=== PATIENT | female | born 1985 | race Caucasian/White ===

== ENCOUNTER 2017-01-14 18:31 | Emergency (ER) | payer OTHER ==
[~2017-01-14] VITALS: Ht 157.5 cm; Wt 52.2 kg
--- NOTE | 2017-01-14 19:18 | [facility]gent Treatment [facility] Report ---
History of Present Issue Date/Time Seen by Provider 01/14/171917 Visit Reason Pt arrived:Walked Presenting Problem:PT C/O COUGH X1 WEEK THAT DEVELOPED INTO CHEST CONGESTION YESTERDAY Location if Accident: Onset of symptoms date/time:/ or onset unknown for:MEDICAL HX UNKNOWN Have you (or family members/close friends) recently traveled outside the [place]? N If Yes, where/when: Have you had exposure to infectious disease within the past month? TB? Other? Specify: c/o cough and chest congestion. Started w/ rhinorrhea and nasal congestion approximately 2 weeks ago but quickly changed to cough and chest congestion pt reports. No fever or malaise until the last 1-2 days. "just more tired mostly". productive cough, white to yellow sputum. Initially denies SOA but then talks about increased coughing and work of breathing w/ exertion. Worse yesterday out in the heat. Essie a "vibration" mid chest yesterday that scared her. Thinks now just congestion and heat combination. Robitussin and mucinex not helping. Non smoker. 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 Source patient Exam Limitations no limitations ALLERGIES Coded Allergies: No Known Allergies (01/14/17) History Medical History General CAD? No Angina: No [place]: No Hypertension? No Hyperlipidemia? No CHF? No DVT? No PE? No COPD? No Asthma? No Anemia? No GERD? No Gastric ulcers? No GI Bleed? No Hernia? No Thyroid Problems? No Hypothyroidism? No CVA? No Seizures? No Diabetes? No Renal Insuffiency? No UTI? No Stones? No BPH? No GB Disease: No Nephritic Syndrome? No Asplenia? No Hepatitis? No Sickle Cell Disease? No Arthritis? No Migraines? No Cataracts? No Glaucoma? No MRSA? No HIV? No TB? No Anxiety? No Depression? No Cancer? No More? No Immunization HX DT/Tetanus Unknown Surgical Hx Previous Surgery?N Social History Smoking Hx Smoker: Never Smoker Tobacco: No Alcohol Alcohol: No Review of Systems All Other Systems Reviewed and Negative Constitutional see HPI Eyes denies drainage ENT see HPI. denies: ear pain, ear discharge, throat pain, throat swelling. Respiratory see HPI, denies wheezing Cardiovascular denies chest pain, denies palpitations Gastrointestinal denies no symptoms reported Musculoskeletal denies other (body aches) Skin denies change in color Psychiatric/Neurological denies headache Physical Exam Vital Signs Vital Signs Date Time Temp Pulse Resp B/P Pulse O2 O2 Flow FiO2 Ox Delivery Rate 01/15 2032 98.9 90 14 / 100 01/14 1843 98.9 90 14 100 General Appearance normal appearance, no apparent distress Eye Exam - bilateral eye normal exam Ear, Nose, Throat normal ENT inspection (x/ nasal congestion) Neck non-tender, supple Respiratory Status Yes: trachea midline, chest symmetrical, non productive cough. No: respiratory distress, use of accessory muscles, pain on inspiration, pain on expiration, productive cough. Lung Sounds anterior: lungs clear. posterior: lungs clear. bilateral: lungs clear. Cardiovascular regular rate/rhythm, no peripheral edema, no murmur Neurologic alert, oriented x 3 Mental status normal mood/affect Skin normal color, warm/dry Lymphatic no adenopathy Medical Decision Making LABS/Meds/Orders Pt receiving controlled substance in ED? No Results/Orders Current Medication Orders Sig/Warner Start time Last Medication Dose Route Stop Time Status Admin Azithromycin 0 .STK-MED ONE 01/14 2033 DC PO Azithromycin 500 MG ONCE ONE 01/14 2030 DC 01/14 PO 01/14 Orders Procedure Date/time Status CHEST(2 VIEWS-NOT PORTABLE) 01/14 1845 Active XRAY/CT/US XRAY/CT/US XRAY chest XR interpretation by reviewed by me (ER MD not available d/t code) Xray Results no acute findings. Discussed w/ patient. Rather not wait for ER MD to review. Plans to call back tomorrow for final xray results. Departure Departure Time of Disposition 2022 Disposition DC Home or Self Care(routine) Clinical Impression Primary Impression: Acute bronchitis Qualifiers: Bronchitis organism: unspecified organism Qualified Code: J20.9 - Acute bronchitis, unspecified Condition STABLE Referrals PEDRO LUIS PERKINS R (Family) IMMEDIATELY for new or worsening symptoms OR no noticeable improvement over the next 48-72 hours. 911 for difficulty breathing or swallowing. Patient Instructions DI for Acute Bronchitis Additional Instructions * start antibiotic tomorrow since first dose given in clinic. Be sure to complete entire prescription even if feeling better. * Monitor Temp. Seek treatment for development of fever. Would not be expected this far into illness. * humidifier/vaporizer/hot steamy shower * Albuterol neb (patient reports already has at home) every 4-6 hours as needed like we discussed. Should help open airways and improve cough, wheezing, shortness of breath. * Mucinex during the day for your cough and cough suppressant only at night. Be sure to drink lots of water. Insurance may not cover a prescription of mucinex. Might be cheaper to get 400mg tablets and take 2 tablets morning, midday and evening all with lots of water. * Promethazine DM cough syrup will cause drowsiness. Use it only at night. No driving, operating machinery or caring for small children after taking it. * Start steroid tomorrow since pharmacy closed tonight. Helps with inflammation therefore, cough and wheezing. Follow directions on package. Rvwd side effects. Pt reports they have taken them before. Call clinic tomorrow at [phone] for final CXR results. inquire if any change in Plan of care necessary if not normal results. Discharge Counseling Counseled pt/family regarding diagnosis, test results, medications/RX, home care, follow up needs Prescriptions Current Visit Scripts Azithromycin (Zithromycin (Z-VIKRAM) 250MG Tab) 250 MG PO DAILY #4 TAB 500mg given in clinic Prednisone (Prednisone 20MG) 20 MG PO BID #10 TAB PROMETHAZINE/DEXTROMETHORPHAN (Promethazine-Dm Syrup) 10 ML PO QHSP PRN cough #120 ML at 8209
[2017-01-14] MEDS ORDERED: PREDNISONE 20MG20 MG PO (20:29)
[2017-01-14] MEDS ORDERED: ZITHROMAX Z PA250 MG PO (20:29)
[2017-01-14] MEDS ORDERED: PROMETHAZINE D118 ML PO (20:29)
[2017-01-14 20:32] VITALS: BP 94/67
--- NOTE | 2017-01-14 22:15 | RADIOLOGY REPORT PS360 ---
CHEST(2 VIEWS-NOT PORTABLE) HISTORY: COUGH AND CHEST CONGESTION X1 WEEK ORDERING PHYSICIAN: BLAKE LANGE APRN PATIENT AGE: 31 years COMPARISON: None available FINDINGS: The cardiomediastinal silhouette and pulmonary vascularity are within normal limits. The lungs are clear without infiltrates, suspicious nodules, or pleural effusions. No acute bony abnormalities. Faint nodular opacities in the lung bases probably due to nipple shadows and may be confirmed with nipple markers IMPRESSION: Negative chest, no acute finding
== END 2017-01-14 20:34 | disposition home or self-care (01) ==
LOC: UTC 18:31
DX: J20.9 Acute bronchitis, unspecified (principal)